=== PATIENT | male | born 1990 | race Caucasian/White ===

== ENCOUNTER 2022-05-01 17:14 | Emergency (ER) | payer MEDICAID ==
[~2022-05-01] VITALS: Ht 177.8 cm; Wt 100.0 kg
[2022-05-01 18:11] VITALS: BP 121/73
[2022-05-01 21:54] LABS: CLARITY URINE CLEAR (CLEAR); COLOR URINE YELLOW (YELLOW); KETONES URINE NEGATIVE (NEGATIVE); LEUKOCYTE ESTERASE URINE NEGATIVE (NEGATIVE); NITRITE URINE NEGATIVE (NEGATIVE); OCCULT BLOOD URINE NEGATIVE (NEGATIVE); PROTEIN URINE NEGATIVE (NEGATIVE); UROBILINOGEN URINE 0.2 E.U./dL (0.2-1.0)
[2022-05-01] MEDS ORDERED: CEPH500C2 MT (21:57)
[2022-05-01] MEDS ORDERED: CLOT15CR27 TP (21:57)
== END 2022-05-01 22:12 | disposition home or self-care (01) ==
LOC: ER 17:14
DX: B34.9 Viral infection, unspecified (principal); R21 Rash and other nonspecific skin eruption; R30.0 Dysuria
CPT/HCPCS: 81003; 99283

== ENCOUNTER 2022-10-10 11:22 | Emergency (ER) | payer MEDICAID, OTHER ==
[~2022-10-10] VITALS: Ht 175.3 cm; Wt 89.0 kg
[~2022-10-10 11:22] MED LIST: CEPH500C2 MT; CLOT15CR27 TP
[2022-10-10 11:26] VITALS: BP 122/83
[2022-10-10] MEDS ORDERED: BACI3.5O19 RIGHTEYE (13:48)
== END 2022-10-10 14:45 | disposition home or self-care (01) ==
LOC: ER 11:22
DX: H00.011 Hordeolum externum right upper eyelid (principal)
CPT/HCPCS: 99283

== ENCOUNTER 2023-11-08 12:06 | Emergency (ER) | payer MEDICAID ==
[~2023-11-08] VITALS: Ht 180.3 cm; Wt 86.2 kg
[~2023-11-08 12:06] MED LIST changes: +BACI3.5O19 RIGHTEYE
[2023-11-08 12:12] VITALS: TEMP 98; O2SAT 99
[2023-11-08] MEDS ORDERED: NAPR-681 MT (13:15)
[2023-11-08] MEDS: KETOROLAC 60MG/2ML VIAL IM STA (13:51)
[2023-11-08 13:56] VITALS: BP 132/73; PULSE 67; RESP 14
== END 2023-11-08 14:44 | disposition home or self-care (01) ==
LOC: ER 12:06
DX: S63.501A Unspecified sprain of right wrist, initial encounter (principal); X58.XXXA Exposure to other specified factors, initial encounter; Y93.89 Activity, other specified; Y92.89 Other specified places as the place of occurrence of the external cause; Y99.8 Other external cause status
CPT/HCPCS: 73110; 96372; 99283; J1885; Z7610